=== PATIENT | male | born 1995 ===

== ENCOUNTER 2018-05-24 04:27 | Emergency (ER) | payer MEDICAID ==
[2018-05-24 04:31] VITALS: RESP 16; TEMP 98.4; O2SAT 98
[2018-05-24] MEDS ORDERED: Sodium Chloride 0.9% 1,000 ML IV STA (04:38)
--- NOTE | 2018-05-24 04:59 | ED PDOC ---
HPI: Psych/Substance Abuse Time Seen by Provider: 05/24/18 04:35 Chief Complaint (Nursing): Alcohol Ingestion Chief Complaint (Provider): Alcohol Ingestion ED Caveat: Intoxicated History Per: Patient, EMS History/Exam Limitations: intoxication Onset/Duration Of Symptoms: Hrs ([employer]) Suicide/Self Injury Attempted (Context): None Modifying Factor(s): Alcohol Additional Complaint(s): 22 year old male with no significant past medical history brought in by EMS presents to the ED for public intoxication. As per EMS, patient is actively vomiting. A full HPI could not be obtained due to ED caveat, patient is intoxicated. PMD: none provided Past Medical History Reviewed: Historical Data, Nursing Documentation, Vital Signs Vital Signs: Last Vital Signs Temp 98.4 F 05/24/18 04:29 Pulse 106 H 05/24/18 04:29 Resp 16 05/24/18 04:29 BP 132/81 05/24/18 04:29 Pulse Ox 98 05/24/18 04:29 - Medical History PMH: No Chronic Diseases - Family History Family History: States: Unknown Family Hx - Social History Alcohol: Other (yes) - Allergies Allergies/Adverse Reactions: Allergies Allergy/AdvReac Type Severity Reaction Status Date / Time No Known Allergies Allergy Verified 05/24/18 04:31 Review of Systems ROS Statement: Except As Marked, All Systems Reviewed And Found Negative Gastrointestinal: Positive for: Vomiting Physical Exam - Reviewed Nursing Documentation Reviewed: Yes Vital Signs Reviewed: Yes - Physical Exam Appears: Positive for: Non-toxic, No Acute Distress Head Exam: Positive for: ATRAUMATIC, NORMOCEPHALIC Skin: Positive for: Normal Color, Warm, Dry Eye Exam: Positive for: EOMI, Normal appearance, PERRL Neck: Positive for: Normal, Painless ROM Cardiovascular/Chest: Positive for: Regular Rate, Rhythm. Negative for: Murmur Respiratory: Positive for: Normal Breath Sounds. Negative for: Respiratory Distress Gastrointestinal/Abdominal: Positive for: Normal Exam, Soft. Negative for: Tenderness Extremity: Positive for: Normal ROM (upper and lower) Neurologic/Psych: Positive for: Alert, Other (slurred speech ) - Laboratory Results Result Diagrams: 05/24/18 05:02 05/24/18 05:02 - ECG O2 Sat by Pulse Oximetry: 98 (RA) Pulse Ox Interpretation: Normal Medical Decision Making Medical Decision Making: Time: 4:38 Initial Impression: 22 year old intoxicated male Initial Plan: --Labs --Zofran --IV fluids Time: 6:00 --Patient reports improvement in symptoms. Labs demonstrate no clinically significant abnormalities with exception of elevated blood alcohol levels. Provider suspects patient may have taken other illicit substances. Patient's girlfriend is bedside and will accompany him home. Patient is stable for discharge home. Diagnosis alcohol intoxication and substance use. Scribe Attestation: Documented by Leticia Moya, acting as a scribe for Jean-Paul Paul MD Provider Scribe Attestation: All medical record entries made by the Scribe were at my direction and personally dictated by me. I have reviewed the chart and agree that the record accurately reflects my personal performance of the history, physical exam, medical decision making, and the department course for this patient. I have also personally directed, reviewed, and agree with the discharge instructions and disposition. Disposition - Clinical Impression Clinical Impression: Alcohol intoxication - Disposition Disposition Time: 06:00 Condition: STABLE Instructions: Alcohol Use - When Is Drinking a Problem? Forms: Un[employer] (Armenian)
[2018-05-24 05:05] LABS: BASO % 0.3 % (0.0-2.0); EOS % 0.3 % (0.0-4.0); HEMOGLOBIN 14.8 g/dL (12.0-18.0); LYMPH # 3.3 K/uL (1.0-4.3); LYMPH % 29.4 % (20.0-40.0); MEAN CELL VOLUME 84.8 fl (80.0-94.0); MEAN CORPUSCULAR HEMOGLOBIN 28.9 pg (27.0-31.0); MEAN CORPUSCULAR HGB CONC 34.1 g/dL (33.0-37.0); MEAN PLATELET VOLUME 8.4 fl (7.2-11.7); MONO # 1.3 K/uL (0.0-0.8); MONO % 12.1 % (0.0-10.0); NEUT # 6.4 K/uL (1.8-7.0); NEUT % 57.9 % (50.0-75.0); RBC 5.11 Mil/uL (4.40-5.90); RED CELL DISTRIBUTION WIDTH 13.2 % (11.5-14.5); WHITE BLOOD COUNT 11.1 K/uL (4.8-10.8)
[2018-05-24 05:15] LABS: ALB/GLOB RATIO 1.7 (1.0-2.1); ALBUMIN 4.6 g/dL (3.5-5.0); ALT/SGPT 37 U/L (21-72); AST/SGOT 25 U/L (17-59); BLOOD UREA NITROGEN 14 mg/dl (9-20); CALCIUM 9.2 mg/dL (8.4-10.2); GFR AFRICAN-AMERICAN > 60; GFR NON-AFRICAN AMERICAN > 60
[2018-05-24 06:08] VITALS: BP 129/80; PULSE 82
== END 2018-05-24 06:08 | disposition home or self-care (01) ==
LOC: H.ER 04:27
DX: F10.129 Alcohol abuse with intoxication, unspecified (principal)
CPT/HCPCS: 80053; 80320; 82948; 85025; 99283; J2405; J7030